=== PATIENT | male | born 1935 | race Caucasian/White ===

== ENCOUNTER → 2016-09-14 | Outpatient (CLI) | payer MEDICARE ==
[~2016-09-14] MED LIST: ALBUTEROL SULFATE 0.083% NEB 2.5 MG/3 ML AMPUL NEB ONE
--- NOTE | 2016-09-16 08:45 | PULMONARY FUNCTION TEST ---
DATE OF SERVICE: 09/14/2016 THE VITAL CAPACITY IS MODERATELY DECREASED. THE EXPIRATORY FLOW RATES ARE SEVERELY DECREASED. THE FEV1/VC IS 58%, PREDICTED: 76% LUNG VOLUMES BY NITROGEN WASH OUT METHOD SHOW: TLC IS 61% OF PREDICTED FRC IS 64% OF PREDICTED RV IS 57% OF PREDICTED THE DLCO IS 12.6, 51% OF PREDICTED. THE RV/TLC RATIO IS 38% PREDICTED 43% AFTER BRONCHODILATOR, EXPIRATORY FLOW RATES SHOW NO SIGNIFICANT CHANGE. IMPRESSION: GOOD PATIENT EFFORT. MODERATE OBSTRUCTIVE AND MODERATE RESTRICTIVE DEFECTS. DIFFUSING CAPACITY IS MODERATELY DECREASED. CC: MARQUES ONTIVEROS MD > SENAIT
== END ==
LOC: RT 08:04
PROVIDERS: ATTEND Specialist
DX: J44.9 Chronic obstructive pulmonary disease, unspecified (principal)
CPT/HCPCS: 94729 ×2; 94727 ×2; 94060 ×2; 94760; A9270